=== PATIENT | female | born 1955 | race Asian ===

== ENCOUNTER → 2019-07-07 17:23 | Outpatient (CLI) | payer OTHER, SELFPAY ==
--- NOTE | 2019-07-07 17:27 | DI.MRI.S_ITS ---
PROCEDURE: MR LUMBAR SPINE WO CON INDICATIONS: LOW BACK PAIN WITH RIGHT LEG RADICULAR PAIN TECHNIQUE: Noncontrast sagittal T1 spin echo and T2 fast echo, sagittal STIR, axial T1 and T2 fast spin echo through the lumbar spine. In cases with scoliosis, additional coronal T2 fast spin echo may be performed. COMPARISON: None. FINDINGS: Image quality: Diagnostic. Spinal Cord: The imaged portions of the spinal cord are normal in size and signal. The conus medullaris is normal in position. Paraspinous Soft Tissues: No paravertebral masses. Image soft tissues of the abdomen and pelvis are grossly unremarkable; however, not adequately evaluated on this exam. The abdominal aorta is normal in course and caliber. Bones: The vertebral body heights and marrow signal are within normal limits. There is no acute fracture or dislocation. No suspicious osseous lesions are evident. Lower thoracic levels: Mild degenerative changes of the included lower thoracic levels are present. No large disc protrusions or extrusions are evident. There is no central canal or neural foraminal narrowing at these levels. L1-L2: There is disc desiccation and mild diffuse disc bulge with early facet arthrosis. No significant central canal stenosis is present. There is no neural foraminal narrowing. L2-L3: There is disc desiccation and mild diffuse disc bulge with moderate facet arthrosis and ligamentum flavum laxity/hypertrophy. There is mild central canal stenosis without significant neural foraminal narrowing. L3-L4: There is grade 1 anterolisthesis of L3 on L4. No definitive pars interarticularis defects are appreciated. There is mild disc height loss and disc desiccation with mild diffuse disc bulge and moderate facet arthrosis with ligamentum flavum thickening. These findings result in moderate central canal stenosis and borderline bilateral neural foraminal narrowing. L4-L5: Grade 1 anterolisthesis of L4 and L5 is present. No definite pars interarticularis defects are appreciated. There is mild disc height loss and diffuse disc bulge. Disc desiccation is present. There is severe facet arthrosis and ligamentum flavum prominence. These findings result in severe central canal stenosis and mild bilateral neural foraminal narrowing. L5-S1: No significant disc bulge is present. There may be a small annular fissure along the anterior margin of the disc. Mild facet degenerative changes at this level are present. There is no central canal or neural foraminal narrowing. Sacroiliac joints: Moderate sacroiliac joint degenerative changes are present, but not well evaluated or completely included on this study. IMPRESSION: 1. 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 2. No disc protrusions or extrusions. 3. Multilevel central canal stenosis is most pronounced at L4-5 and appears to predominantly be related to ligamentum flavum prominence and facet arthrosis. 4. Possible mild neural foraminal narrowing at L4-5. 5. Grade 1 spondylolisthesis at L3/4 and L4/5. Dictated by: Markie Pak M.D. on 07/08/2019 at 10:31 Approved by: Markie Pak M.D. on 07/08/2019 at 10:37
== END ==
PROVIDERS: Visit Provider Family Medicine
DX: M54.5 Low back pain (principal); M47.26 Other spondylosis with radiculopathy, lumbar region; M48.061 Spinal stenosis, lumbar region without neurogenic claudication; M43.16 Spondylolisthesis, lumbar region
CPT/HCPCS: 72148

== ENCOUNTER → 2019-11-27 12:02 | Outpatient (CLI) | payer OTHER, SELFPAY ==
--- NOTE | 2019-11-27 | DI.MG.S_ITS ---
BILATERAL DIGITAL SCREENING MAMMOGRAM 3D/2D WITH CAD: 11/27/2019 Comparison is made to exams dated: 10/07/2018 mammogram, 09/09/2017 mammogram, and 09/17/2016 mammogram - [facility]. There are scattered fibroglandular elements in both breasts. Current study was also evaluated with a Computer Aided Detection (CAD) system. No significant masses, calcifications, or other findings are seen in either breast. There has been no significant interval change. IMPRESSION: NEGATIVE There is no mammographic evidence of malignancy. A 1 year screening mammogram is recommended. This exam was interpreted at Station ID: [id number]. NOTE: For mammograms, a report in lay terms will be sent to the patient. Approximately 15% of breast malignancies will not be visualized mammographically. In the management of a palpable breast mass, a negative mammogram must not discourage biopsy of a clinically suspicious lesion. Electronically Signed By: Juanpablo garay/daniel:11/27/2019 15:08:02 letter sent: Normal Exam ACR BI-RADS Category 1: Negative 3341F
== END ==
PROVIDERS: PCP Family Medicine; Visit Provider Family Medicine
DX: Z12.31 Encounter for screening mammogram for malignant neoplasm of breast (principal)
CPT/HCPCS: 77063; 77067

== ENCOUNTER → 2020-12-03 07:05 | Outpatient (CLI) | payer MEDICARE, OTHER, SELFPAY ==
[2020-12-03 07:39] LABS: Hemoglobin 13.4 g/dL (12.0-16.0); Mean Corpuscular HGB Conc 33.4 % (30-36); Mean Corpuscular Volume 92.8 fL (80-100); Platelet Count 308 X10^3/uL (150-400); Red Cell Distribution Width 13.3 % (11.6-14.8); White Blood Cell Count 8.9 X10^3/uL (4.5-11.0)
[2020-12-03 08:00] LABS: Alanine Aminotransferase 48 IU/L (<35); Albumin 4.7 g/dL (3.5-5.0); Albumin Globulin Ratio 1.1 (1.0-2.8); Alkaline Phosphatase 80 U/L (38-126); Aspartate Aminotransferase 39 IU/L (14-36); BUN Creatinine Ratio 28.6 (6-22); Bilirubin Total 0.4 mg/dL (0.2-1.3); Blood Urea Nitrogen 16 mg/dL (7-17); Calcium 9.5 mg/dL (8.4-10.2); Carbon Dioxide 27 mmol/L (22-32); Chloride 100 mmol/L (98-107); Cholesterol 147 mg/dL (140-199); Estimated Glomerular Filt Rate > 60.0 mL/min (>60); Globulin 4.3 g/dL (1.7-4.1); Glucose 132 mg/dL (80-110); HDL Cholesterol 43 mg/dL (40-60); HEMOLYSIS 17 (0-50); LDL Cholesterol Calculated 82 mg/dL (<100); Potassium 3.7 mmol/L (3.4-5.1); Sodium 136 mmol/L (137-145); Triglycerides 108 mg/dL (35-150)
[2020-12-03 08:02] LABS: Erythrocyte Sedimentation Rate 46 MM/HR (0-20)
[2020-12-03 08:36] LABS: Add Manual Diff / Slide Review YES; Thyroid Stimulating Hormone 0.705 uIU/mL (0.47-4.68)
[2020-12-03 08:41] LABS: Neutrophils Absolute Manual 5073 /uL (3000-5900); Total Cells Counted 100
[2020-12-03 08:42] LABS: Platelet Estimate Adequate on smear; RBC Morphology Normal Morphology
== END ==
PROVIDERS: PCP Family Medicine; Referring Provider Family Medicine; Visit Provider Internal Medicine
DX: I10 Essential (primary) hypertension (principal); Z79.899 Other long term (current) drug therapy; E11.9 Type 2 diabetes mellitus without complications
CPT/HCPCS: 36415; 80053; 80061; 84443; 85007; 85025; 85651

== ENCOUNTER → 2020-12-13 15:05 | Outpatient (CLI) | payer MEDICARE, OTHER, SELFPAY ==
--- NOTE | 2020-12-13 15:11 | DI.MG.S_ITS ---
BILATERAL DIGITAL SCREENING MAMMOGRAM 3D/2D WITH CAD: 12/13/2020 CLINICAL: Routine screening. Comparison is made to exams dated: 11/27/2019 mammogram - [facility], 10/07/2018 mammogram, and 09/09/2017 mammogram - [facility]. There are scattered fibroglandular elements in both breasts. Current study was also evaluated with a Computer Aided Detection (CAD) system. No significant masses, calcifications, or other findings are seen in either breast. There has been no significant interval change. IMPRESSION: NEGATIVE There is no mammographic evidence of malignancy. A 1 year screening mammogram is recommended. This exam was interpreted at Station ID: [id number]. NOTE: For mammograms, a report in lay terms will be sent to the patient. Approximately 15% of breast malignancies will not be visualized mammographically. In the management of a palpable breast mass, a negative mammogram must not discourage biopsy of a clinically suspicious lesion. Electronically Signed By: Bhavesh nice/daniel:12/13/2020 16:55:44 letter sent: Normal Exam ACR BI-RADS Category 1: Negative 3341F
== END ==
PROVIDERS: PCP Internal Medicine; Referring Provider Internal Medicine; Visit Provider Internal Medicine
DX: Z12.31 Encounter for screening mammogram for malignant neoplasm of breast (principal); M85.851 Other specified disorders of bone density and structure, right thigh; Z78.0 Asymptomatic menopausal state; E07.9 Disorder of thyroid, unspecified
CPT/HCPCS: 77063; 77067; 77080

== ENCOUNTER → 2021-03-11 06:57 | Outpatient (CLI) | payer MEDICARE, OTHER, SELFPAY ==
[2021-03-11 08:14] LABS: Add Manual Diff / Slide Review NO; Basophils Absolute Auto 0 /uL (0-100); Basophils Percent Auto 0.4 % (0-2); Eosinophils Absolute Auto 200 /uL (0-450); Eosinophils Percent Auto 2.2 % (2-4); Hemoglobin 12.7 g/dL (12.0-16.0); Lymphocytes Absolute Auto 1900 /uL (1100-4500); Lymphocytes Percent Auto 23.7 % (25-40); Mean Corpuscular HGB Conc 33.4 % (30-36); Mean Corpuscular Hemoglobin 31.1 PG (26-34); Mean Corpuscular Volume 93.1 fL (80-100); Monocytes Absolute Auto 700 /uL (0-900); Monocytes Percent Auto 8.9 % (3-14); Neutrophils Absolute Auto 5300 /uL (1500-7000); Neutrophils Percent Auto 64.8 % (50-75); Platelet Count 333 X10^3/uL (150-400); Red Blood Cell Count 4.09 X10^6/uL (4.0-5.2); Red Cell Distribution Width 13.7 % (11.6-14.8); White Blood Cell Count 8.2 X10^3/uL (4.5-11.0)
[2021-03-11 08:29] LABS: Alanine Aminotransferase 32 IU/L (<35); Albumin 4.2 g/dL (3.5-5.0); Albumin Globulin Ratio 1.1 (1.0-2.8); Alkaline Phosphatase 78 U/L (38-126); Amylase 68 U/L (30-110); Aspartate Aminotransferase 33 IU/L (14-36); BUN Creatinine Ratio 24.6 (6-22); Bilirubin Total 0.2 mg/dL (0.2-1.3); Blood Urea Nitrogen 14 mg/dL (7-17); Carbon Dioxide 27 mmol/L (22-32); Chloride 103 mmol/L (98-107); Cholesterol 109 mg/dL (140-199); Estimated Glomerular Filt Rate > 60.0 mL/min (>60); Globulin 3.7 g/dL (1.7-4.1); Glucose 128 mg/dL (80-110); HDL Cholesterol 49 mg/dL (40-60); HEMOLYSIS < 15 (0-50); LDL Cholesterol Calculated 40 mg/dL (<100); Potassium 4.9 mmol/L (3.4-5.1); Sodium 139 mmol/L (137-145); Total Protein 7.9 g/dL (6.3-8.2); Triglycerides 100 mg/dL (35-150)
== END ==
PROVIDERS: PCP Internal Medicine; Referring Provider Internal Medicine; Visit Provider Internal Medicine
DX: I10 Essential (primary) hypertension (principal); E11.9 Type 2 diabetes mellitus without complications; M85.80 Other specified disorders of bone density and structure, unspecified site; Z79.899 Other long term (current) drug therapy
CPT/HCPCS: 36415; 80053; 80061; 82150; 85025

== ENCOUNTER → 2021-04-14 09:54 | Outpatient (CLI) | payer MEDICARE, OTHER, SELFPAY ==
--- NOTE | 2021-04-14 09:56 | DI.US.S_ITS ---
PROCEDURE: US ABDOMEN COMPLETE INDICATIONS: Right upper quadrant pain TECHNIQUE: Real-time scanning was performed of the abdominal and retroperitoneal organs, with image documentation. COMPARISON: None. FINDINGS: Liver: Liver is normal in size and homogeneous in echotexture. Gallbladder: There are multiple shadowing calculi within the lumen the gallbladder without pericholecystic fluid or gallbladder wall thickening. No sonographic Bach sign. Biliary ducts: Intrahepatic bile ducts are non-dilated. Extrahepatic bile duct caliber measures 6 mm. Normal is 6-7 mm or less in diameter, or 10 mm or less post-cholecystectomy. Pancreas: Visualized portions of the pancreas are sonographically normal. Spleen: Spleen is normal in size and homogeneous in echotexture. Kidneys: Kidneys are normal in size and echotexture. Right kidney measures 11.5 cm long; left kidney measures 12 cm long. No hydronephrosis or nephrolithiasis. No solid masses. Left-sided simple cyst measures 1.7 x 1.5 cm. Aorta: Visualized aorta is normal in caliber at less than 3 cm. Iliacs: Proximal common iliac arteries are normal in caliber at less than 2.5 cm. IVC: Intrahepatic inferior vena cava is patent. Miscellaneous: No free abdominal fluid. IMPRESSION: 1. Cholelithiasis without ultrasound evidence of acute cholecystitis. 2. Incidental simple left renal cyst Dictated by: Damion Mcarthur M.D. on 04/14/2021 at 11:31 Approved by: Damion Mcarthur M.D. on 04/14/2021 at 11:35
== END ==
PROVIDERS: PCP Internal Medicine; Referring Provider Internal Medicine; Visit Provider Internal Medicine
DX: K57.32 Diverticulitis of large intestine without perforation or abscess without bleeding (principal); R10.11 Right upper quadrant pain; K80.20 Calculus of gallbladder without cholecystitis without obstruction; N28.1 Cyst of kidney, acquired
CPT/HCPCS: 76700

== ENCOUNTER → 2022-06-29 07:25 | Outpatient (CLI) | payer MEDICARE, OTHER, SELFPAY ==
--- NOTE | 2022-06-29 | DI.US.S_ITS ---
PROCEDURE: US ABDOMEN COMPLETE INDICATIONS: PROTEINURIA; GALLSTONES TECHNIQUE: Real-time scanning was performed of the abdominal and retroperitoneal organs, with image documentation. COMPARISON: None. FINDINGS: Liver: Hepatic steatosis. Otherwise normal appearance of the liver Gallbladder: Normally distended. No gallbladder wall thickening or pericholecystic fluid. There are few mobile gallstones measuring approximately 1 centimeter. The advanced practice nurse psychotherapist reports a negative sonographic Bach's sign. Biliary ducts: Normal diameter. Pancreas: Visualized portions of the pancreas are sonographically normal. Spleen: Spleen is normal in size and homogeneous in echotexture. Kidneys: Normal size and appearance. Left renal simple cyst measuring 2 centimeters. Aorta: Visualized aorta is normal in caliber at less than 3 cm. Iliacs: Proximal common iliac arteries are normal in caliber at less than 2.5 cm. IVC: Intrahepatic inferior vena cava is patent. Miscellaneous: No free abdominal fluid. IMPRESSION: Hepatic steatosis and cholelithiasis. Dictated by: William Jj M.D. on 06/29/2022 at 10:10 Approved by: William Jj M.D. on 06/29/2022 at 10:11
--- NOTE | 2022-06-29 | DI.MG.S_ITS ---
BILATERAL DIGITAL SCREENING MAMMOGRAM 3D/2D WITH CAD: 06/29/2022 CLINICAL: Routine screening. Comparison is made to exams dated: 12/13/2020 mammogram, 11/27/2019 mammogram - [facility], 10/07/2018 mammogram, and 09/09/2017 mammogram - [facility]. There are scattered areas of fibroglandular density in both breasts (category b / 25%-50% glandular tissue). Current study was also evaluated with a Computer Aided Detection (CAD) system. No significant masses, calcifications, or other findings are seen in either breast. There has been no significant interval change. IMPRESSION: NEGATIVE There is no mammographic evidence of malignancy. A 1 year screening mammogram is recommended. Based on the Tyrer Cuzick model (a risk assessment model) the patient's lifetime risk is 6.4% and her 10 year risk is 3.2%. According to the ACR, ACS, and NCCN guidelines, an annual breast MRI exam along with mammogram is recommended if the patient's lifetime risk is 20% or greater. This exam was interpreted at Station ID: [id number]. NOTE: For mammograms, a report in lay terms will be sent to the patient. Approximately 15% of breast malignancies will not be visualized mammographically. In the management of a palpable breast mass, a negative mammogram must not discourage biopsy of a clinically suspicious lesion. Electronically Signed By: Seven foley/daniel:06/29/2022 08:25:04 letter sent: Normal Exam ACR BI-RADS Category 1: Negative 3341F
== END ==
PROVIDERS: PCP Internal Medicine; Referring Provider Internal Medicine; Visit Provider Internal Medicine
DX: Z12.31 Encounter for screening mammogram for malignant neoplasm of breast (principal); K80.20 Calculus of gallbladder without cholecystitis without obstruction; K76.0 Fatty (change of) liver, not elsewhere classified; R80.8 Other proteinuria
CPT/HCPCS: 76700; 77063; 77067

== ENCOUNTER → 2022-08-27 10:50 | Outpatient (CLI) | payer MEDICARE, OTHER, SELFPAY ==
[2022-08-27 12:54] LABS: COVID19 -Nasal RAPID Negative (Negative)
== END ==
PROVIDERS: PCP Internal Medicine; Visit Provider Surgery
DX: Z20.822 Contact with and (suspected) exposure to COVID-19 (principal); Z01.812 Encounter for preprocedural laboratory examination
CPT/HCPCS: 87635; C9803

== ENCOUNTER 2022-08-28 11:38 | Day surgery (SDC) | payer MEDICARE, OTHER, SELFPAY ==
[2022-08-27 14:17] VITALS: BMI 24.4
[2022-08-28] VITALS (16 sets, daily range): BP systolic 125–187; BP diastolic 64–95; PULSE 74–88; RESP 13–24; TEMP 36.1–37.2; O2SAT 97–100; BMI 23.4
--- NOTE | 2022-08-28 | PATH_ITS ---
[facility] Accession Number: [id number] No. of containers..01 Tissue . 01 Material submitted: . gallbladder - GALLBLADDER . 01 Diagnosis: Gallbladder, Cholecystectomy: Chronic cholecystitis and cholelithiasis. MICKY 09/02/2022 1103 Local . 01 Electronically signed: . Ying Obrien MD, Pathologist NPI- [id number] . 01 Gross description: . The specimen is received in formalin labeled with the patient's name and gallbladder, and consists of an intact gallbladder measuring 6.2 x 2.5 x 1.8 cm with yellow to bhatti, wrinkled serosa and a rough and unremarkable hepatic surface. The cystic duct is received closed with a clamp, is inked blue, and no pericystic lymph node is identified. Opening the specimen reveals the lumen to contain dark green viscous bile admixed with numerous black bosselated, sharp calculi measuring up to 0.6 cm in greatest dimension obstructing the cystic duct. The mucosa is green and velvety with no pinpoint yellow areas of discoloration, polyps, or lesions identified. The ortiz average 0.3 cm thick and truck sales representative sections to include the cystic duct margin and full thickness sections are submitted in cassette A1. ([id number]) /MICKY 09/01/2022 1216 Local . 01 Pathologist provided ICD-10: K80.12 . 01 CPT . 515769 Specimen Comment: A courtesy copy of this report has been sent to [phone] Performed at: 01 [facility] [address] [place] [address] [address] [facility], [place], [place] [id number] MD Juanpablo Vizcarra MD Phone: [phone]
[2022-08-28] MEDS: LACTATED RINGERS 1,000 ML 100 ML IV (12:22)
--- NOTE | 2022-08-28 13:22 | PM.PREOP ---
Pre-operative Note Interval Note History & Physical reviewed/Exam performed by Physician: Yes Changes to H&P: No
[2022-08-28] MEDS: CEFAZOLIN 2 GM/100 ML PREMIX 100 ML IV (13:35)
--- NOTE | 2022-08-28 13:48 | SUR.OPER ---
Supine on padded OR bed, head on pillow, arms secured on padded arm boards at <90 degrees abduction, legs uncrossed, safety belt at thigh, tape over blanket over lower legs.
[2022-08-28] MEDS: BUPIVACAINE 0.25% (PF) VIAL 30 ML INJ (13:56)
[2022-08-28] MEDS: ONDANSETRON 4 MG/2 ML INJ IV ×2 (14:48→15:35)
--- NOTE | 2022-08-28 14:55 | PM.OP.1 ---
Operative Date/Time/Diagnoses Date of procedure: 08/28/22 Time of procedure: 14:56 Pre-op diagnosis: Biliary colic Post-op diagnosis: same Procedure & Clinicians Procedure: Laparoscopic cholecystectomy Same procedure as scheduled: Yes Indications: symptoms and radiographic findings consistent with biliary colic Surgeon: Srikanth Silver Anesthesia Type: General Operative Notes Findings: No evidence of acute cholecystitis. Small gallstones Specimen(s): other (gallbladder) Estimated Blood Loss (mL): 20 Procedure in detail: The patient was placed supine on the table and bilateral lower extremity compression devices were applied. Anesthesia was induced they were intubated with an endotracheal tube and received 2g of Ancef. A time-out was performed. They were prepped and draped in sterile fashion. An infraumbilical incision was made, the umbilical stalk was elevated and the fascia was sharply incised entering the abdomen atraumatically. A blunt tip 12mm balloon trocar was then inserted, pneumoperitoneum was established and inspection of the abdomen demonstrated no evidence of injury. They were placed head up and right side up and then a 11 mm port was placed high in the epigastrium and two 5mm in the right upper quadrant. Gallbladder was not acutely inflamed and was largely unremarkable. The gallbladder was grasped by the fundus and retracted over the liver and retracted laterally by the infundibulum. Using electrocautery the lateral plane between the gallbladder and the liver was opened towards the fundus. The gallbladder was then retracted laterally and the medial plane was developed in the same manner. With the gallbladder mobilized the bottom of the cystic plate was visualized. The hepatocystic triangle was meticulosly skeletonized of all fat and fibrous tissue from both the front and the back. Only two structures were then clearly seen entering the gallbladder the cystic duct and the cystic artery. With the critical view of safety fully established the cystic duct was clipped twice proximally and once distally using the 10 mm weck hemo clip applied under direct visualization and then sharply divided. The cystic artery was divided in the same fashion. The gallbladder was removed from the liver bed using electro cautery. The liver bed was then inspected for hemostasis and this was achieved. The abdomen was irrigated with sterile saline and inspection was made that showed the clips in good position. The specimen was removed using Endo-Catch. The abdomen was desufflated. The umbilical fascia was closed with 0 Vicryl in a [id number] fashion under direct visualization. Skin incisions were irrigated and closed with 4-0 Monocryl. 30 ml of 0.25% bupivacaine was infiltrated into the subcutaneous tissue of the incisions. The wounds were sealed with Dermabond. Patient emerged from anesthesia was extubated and transferred to recovery in stable condition. The sponge and instrument count at the end of the operation was correct. Complications: none Post-operative Condition: stable Disposition: same day surgery
[2022-08-28] MEDS: HYDRALAZINE 20 MG/ML VIAL IV (15:03)
--- NOTE | 2022-08-28 15:08 | SUR.PHASEI ---
Called Dr Woodard for patient's blood pressure of 184/95, gave verbal order for hydralazine, medication was given to patient and is now being monitored, pt remains drowzy at this time, however is alert and denying pain.
[2022-08-28] MEDS: OXYCODONE/ACETAMINOPHEN 5/325 TABLET 1 TAB PO (15:20)
[2022-08-28] MEDS: METOCLOPRAMIDE 10 MG/2 ML INJ IV (16:30)
--- NOTE | 2022-08-28 17:16 | SUR.PHASEII ---
1630 Patient had large clear emesis. Dr. Woodard notified. Received order for IV reglan. IV reglan given as ordered. 1715 Nausea has subsided. Pain tolerable. Discharged patient to home accompanied by her spouse in private vehicle.
== END 2022-08-28 17:15 | disposition home or self-care (01) ==
PROVIDERS: PCP Internal Medicine; Referring Provider Surgery; Visit Provider Surgery
PROC: 0FT44ZZ Resection of Gallbladder, Percutaneous Endoscopic Approach (ICD-10-PCS; CPT 47562; principal; 2022-08-28 13:30)
DX: K80.10 Calculus of gallbladder with chronic cholecystitis without obstruction (principal); E11.9 Type 2 diabetes mellitus without complications; I10 Essential (primary) hypertension; E03.9 Hypothyroidism, unspecified; Z79.84 Long term (current) use of oral hypoglycemic drugs
CPT/HCPCS: 47562; 82962; J0360; J0690; J1100; J1885; J2250; J2405; J2765; J3010

== ENCOUNTER → 2023-07-26 09:23 | Outpatient (CLI) | payer OTHER, SELFPAY ==
--- NOTE | 2023-07-26 | DI.MG.S_ITS ---
BILATERAL DIGITAL SCREENING MAMMOGRAM 3D/2D WITH CAD: 07/26/2023 CLINICAL: Routine screening. Comparison is made to exams dated: 06/29/2022 mammogram, 12/13/2020 mammogram, and 11/27/2019 mammogram - [facility]. There are scattered areas of fibroglandular density in both breasts (category b / 25%-50% glandular tissue). Current study was also evaluated with a Computer Aided Detection (CAD) system. No significant masses, calcifications, or other findings are seen in either breast. IMPRESSION: NEGATIVE There is no mammographic evidence of malignancy. A 1 year screening mammogram is recommended. Based on the Tyrer Cuzick model (a risk assessment model) the patient's lifetime risk is 6.1% and her 10 year risk is 3.2%. According to the ACR, ACS, and NCCN guidelines, an annual breast MRI exam along with mammogram is recommended if the patient's lifetime risk is 20% or greater. This exam was interpreted at Station ID: [id number]. NOTE: For mammograms, a report in lay terms will be sent to the patient. Approximately 15% of breast malignancies will not be visualized mammographically. In the management of a palpable breast mass, a negative mammogram must not discourage biopsy of a clinically suspicious lesion. Electronically Signed By: Mali alvarez/daniel:07/26/2023 16:41:27 letter sent: Normal Exam ACR BI-RADS Category 1: Negative 3341F
== END ==
PROVIDERS: PCP Internal Medicine; Referring Provider Internal Medicine; Visit Provider Internal Medicine
DX: Z12.31 Encounter for screening mammogram for malignant neoplasm of breast (principal)
CPT/HCPCS: 77063; 77067

== ENCOUNTER → 2024-07-31 14:06 | Outpatient (CLI) | payer OTHER, SELFPAY ==
--- NOTE | 2024-07-31 14:07 | DI.MG.S_ITS ---
BILATERAL DIGITAL SCREENING MAMMOGRAM 3D/2D WITH CAD: 07/31/2024 CLINICAL: Routine screening. Comparison is made to exams dated: 07/26/2023 mammogram, 06/29/2022 mammogram, and 12/13/2020 mammogram - [facility]. There are scattered areas of fibroglandular density (category b / 25%-50% glandular tissue). Current study was also evaluated with a Computer Aided Detection (CAD) system. No significant masses, calcifications, or other findings are seen in either breast. There has been no significant interval change. IMPRESSION: NEGATIVE There is no mammographic evidence of malignancy. A 1 year screening mammogram is recommended. Based on the Tyrer Cuzick model (a risk assessment model) the patient's lifetime risk is 5.8% and her 10 year risk is 3.2%. According to the ACR, ACS, and NCCN guidelines, an annual breast MRI exam along with mammogram is recommended if the patient's lifetime risk is 20% or greater. This exam was interpreted at Station ID: [id number]. NOTE: For mammograms, a report in lay terms will be sent to the patient. Approximately 15% of breast malignancies will not be visualized mammographically. In the management of a palpable breast mass, a negative mammogram must not discourage biopsy of a clinically suspicious lesion. Electronically Signed By: Los ortiz/daneil:08/01/2024 08:46:22 letter sent: Normal Exam ACR BI-RADS Category 1: Negative
== END ==
LOC: MAMMO 14:07
PROVIDERS: PCP Internal Medicine; Referring Provider Internal Medicine; Visit Provider Internal Medicine
DX: Z12.31 Encounter for screening mammogram for malignant neoplasm of breast (principal)
CPT/HCPCS: 77063; 77067

== ENCOUNTER → 2025-09-17 15:10 | Outpatient (CLI) | payer OTHER, SELFPAY ==
--- NOTE | 2025-09-17 15:13 | DI.MG.S_ITS ---
MM screening mammo BI: 09/17/2025. BI-RADS: 1 CLINICAL: 70-year old female for bilateral screening mammogram. Tyrer-Cuzick lifetime risk of 3.0%. No personal or first-degree family history of breast cancer. PRIOR EXAMS 07/31/2024, 07/26/2023, 06/29/2022, 12/13/2020, MAMMOGRAPHY TECHNIQUE: 2D and 3D (tomosynthesis) digital mammographic views obtained, with additional images as needed for full coverage. Current study was also evaluated with a Computer Aided Detection (CAD) system. DENSITY B. There are scattered areas of fibroglandular density. MAMMOGRAPHY FINDINGS Bilateral: No suspicious mass, asymmetry, microcalcification, or other abnormality seen. No significant change from comparison. IMPRESSION: * No evidence of malignancy. RECOMMENDATIONS Bilateral * Annual screening mammography. OVERALL ASSESSMENT CATEGORY BI-RADS-1: Negative. The [employer] recommends annual screening mammography beginning at age 40 for women with average risk of breast cancer. ELECTRONICALLY SIGNED: Aditi Farnsworth M.D. on 09/18/2025 at 11:33:26 AM PT Interpreting Station ID: [id number]
== END ==
PROVIDERS: PCP Internal Medicine; Referring Provider Internal Medicine; Visit Provider Internal Medicine
DX: Z12.31 Encounter for screening mammogram for malignant neoplasm of breast (principal)
CPT/HCPCS: 77063; 77067